=== PATIENT | male | born 1955 | race Caucasian/White ===

== ENCOUNTER → 2016-09-13 | Outpatient (CLI) | payer MEDICARE ==
--- NOTE | 2016-09-13 17:01 | US ---
EXAMINATION TYPE: US scrotum with doppler. Grayscale and color Doppler Duplex imaging performed of t erlinda scrotum. DATE OF EXAM: 09/13/2016 4:08 PM COMPARISON: NONE CLINICAL HISTORY: N50.819 Testicular Pain. Pain started on left then went to the right. No injury. No swelling EXAM MEASUREMENTS: TESTICLES: Right Testicle: 4.0 x 2.9 x 2.6 cm Left Testicle: 3.9 x 3.4 x 2.3 cm EPIDIDYMIS HEAD: Right Epididymis: 1.3 x 1.0 x 0.6 cm Left Epididymis: 1.1 x 1.1 x 0.6 cm Doppler performed to assess for testicular vascularity; good bilateral color flow and waveforms are s een. There is no evidence of testicular torsion. Presence of hydroceles: yes, bilateral Presence of varicoceles: No TECHNOLOGIST IMPRESSION: Right epididymal simple cyst seen in head = 0.5 x 0.5 x 0.5 cm IMPRESSION: 1. Right epididymal cyst
== END | disposition home or self-care (01) ==
LOC: RADUSMAIN 15:32
PROVIDERS: ATTEND Family Medicine
DX: N50.3 Cyst of epididymis (principal); N50.819 Testicular pain, unspecified
CPT/HCPCS: 76870; 93975

== ENCOUNTER → 2017-09-20 | Outpatient (CLI) | payer MEDICARE | END | disposition home or self-care (01) | LOC: LABWHC1 10:34 | PROVIDERS: ATTEND Psychiatry & Neurology Neurology | DX: G40.009 Localization-related (focal) (partial) idiopathic epilepsy and epileptic syndromes with seizures of localized onset, not intractable, without status epilepticus (principal) | CPT/HCPCS: 36415; 80156; 80177 ==

== ENCOUNTER → 2018-09-19 | Outpatient (CLI) | payer MEDICARE | END | disposition home or self-care (01) | LOC: LABWHC1 10:38 | PROVIDERS: ATTEND Psychiatry & Neurology Neurology | DX: G40.009 Localization-related (focal) (partial) idiopathic epilepsy and epileptic syndromes with seizures of localized onset, not intractable, without status epilepticus (principal) | CPT/HCPCS: 36415; 80156; 80177 ==

== ENCOUNTER → 2019-09-11 | Outpatient (CLI) | payer MEDICARE | END | disposition home or self-care (01) | LOC: LABWHC1 10:40 | PROVIDERS: ATTEND Psychiatry & Neurology Neurology | DX: G40.009 Localization-related (focal) (partial) idiopathic epilepsy and epileptic syndromes with seizures of localized onset, not intractable, without status epilepticus (principal) | CPT/HCPCS: 36415; 80156; 80177 ==

== ENCOUNTER → 2021-04-14 | Outpatient (CLI) | payer MEDICARE | END | disposition home or self-care (01) | LOC: LABWHC1 10:46 | PROVIDERS: ATTEND Psychiatry & Neurology Neurology | DX: G40.909 Epilepsy, unspecified, not intractable, without status epilepticus (principal) | CPT/HCPCS: 36415; 80156; 80177 ==

== ENCOUNTER 2022-01-20 12:10 | Inpatient (IN) | payer MEDICARE ==
[2022-01-20 13:33] LABS: HCT 40.1 % (39.0-53.0); HGB 13.9 gm/dL (13.0-17.5); MCH 32.2 pg (25.0-35.0); MCHC 34.7 g/dL (31.0-37.0); MCV 92.6 fL (80.0-100.0); Mean Platelet Volume 7.9; Platelet Count 142 k/uL (150-450); RBC 4.33 m/uL (4.30-5.90); RDW 12.9 % (11.5-15.5); WBC 7.1 k/uL (3.8-10.6)
[2022-01-20 13:44] LABS: Albumin 4.7 g/dL (3.5-5.0); Calcium 8.5 mg/dL (8.4-10.2); Potassium 3.5 mmol/L (3.5-5.1); Total Bilirubin 0.4 mg/dL (0.2-1.3); Total Protein 7.7 g/dL (6.3-8.2)
--- NOTE | 2022-01-20 13:49 | CT ---
n EXAMINATION TYPE: CT brain wo con DATE OF EXAM: 01/20/2022 COMPARISON: None HISTORY: Altered mental status, blood from Rt ear CT DLP: 1099.[address] of the brain was performed. The ventricles, basal cisterns and sulci overlying the cerebral convexities demonstrate mild enlargem ent. 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 There is no evidence for intracranial hemorrhage or sulcal effacement. There is decreased attenuation about the periventricular white matter and deep white matter of both c erebral hemispheres, compatible with chronic small vessel ischemia. Differential diagnosis does inclu de demyelination. No mass effects are seen.No midline shift. Osseous calvarium is intact. If symptoms persist consider MRI. IMPRESSION: 1. Age related atrophic and chronic small vessel ischemic change without acute intracranial process s een at this time. Colloid cyst as noted.
--- NOTE | 2022-01-20 13:50 | XR ---
EXAMINATION TYPE: XR chest 2V DATE OF EXAM: 01/20/2022 1:43 PM COMPARISON: None TECHNIQUE: XR chest 2V Frontal and lateral views of the chest. CLINICAL INDICATION:Male, 67 years old with history of cough; FINDINGS: Lungs/Pleura: No pneumothorax, pleural effusion or focal consolidation. Subtle hazy opacities noted i n the medial aspect of the right lower lung. Pulmonary vascularity: Unremarkable. Heart/mediastinum: Cardiomediastinal silhouette is unremarkable. Musculoskeletal: No acute osseous pathology. IMPRESSION: Subtle right lower opacities correlate for pneumonia.
[2022-01-20] MEDS ORDERED: SODIUM CHLORIDE 0.9% 1,000 ML IV ONE (14:03)
[2022-01-20] MEDS ORDERED: ACETAMINOPHEN TAB 325 MG TAB PO PRN (14:55)
[2022-01-20] MEDS ORDERED: NALOXONE 0.4 MG/ML 1 ML VIAL IV PRN ×2 (14:55→16:36)
[2022-01-20] MEDS ORDERED: cefTRIAXone IN SWFI 1,000 MG/10 ML SYRINGE IVP STA (14:56)
--- NOTE | 2022-01-20 15:02 | ED ---
General Adult HPI - General Chief complaint: Altered Mental Status Stated complaint: blood in ear/AMS Time Seen by Provider: 01/20/22 13:54 Source: patient, RN notes reviewed, old records reviewed Mode of arrival: wheelchair - History of Present Illness Initial comments: 67-year-old male presents for evaluation of progressive confusion over the past 36 hours. Patient is coming by son and [id number]-su-pof who indicate that he has a seizure disorder but there was no witnessed seizure activity. There was a fall at home and they have noted some bleeding around the right ear. Uncertain if the patient lost consciousness. He denies pain complaints. There's been no measured fever. No vomiting. - Related Data Allergies Allergy/AdvReac Type Severity Reaction Status Date / Time No Known Allergies Allergy Verified 01/20/22 13:10 Review of Systems ROS Statement: Those systems with pertinent positive or pertinent negative responses have been documented in the HPI. ROS Other: All systems not noted in ROS Statement are negative. Past Medical History Additional Past Medical History / Comment(s): epilepsy History of Any Multi-Drug Resistant Organisms: None Reported Past Surgical History: No Surgical Hx Reported Past Psychological History: No Psychological Hx Reported Smoking Status: Never smoker Past Alcohol Use History: None Reported Past Drug Use History: None Reported General Exam General appearance: alert, in no apparent distress Head exam: Present: atraumatic, normocephalic Eye exam: Present: normal appearance, PERRL ENT exam: Present: normal exam Neck exam: Present: normal inspection. Absent: tenderness, meningismus Respiratory exam: Present: normal lung sounds bilaterally. Absent: respiratory distress, wheezes Cardiovascular Exam: Present: regular rate, normal rhythm GI/Abdominal exam: Present: soft. Absent: distended, tenderness, guarding Extremities exam: Present: normal inspection, normal capillary refill. Absent: pedal edema Neurological exam: Present: alert, CN II-XII intact. Absent: oriented X3, motor sensory deficit Psychiatric exam: Present: flat affect Skin exam: Present: warm, dry, intact. Absent: cyanosis, diaphoretic Course Vital Signs 01/20/22 13:00 Temperature 99.1 F Pulse Rate 76 Respiratory 18 Rate Blood Pressure 132/83 O2 Sat by Pulse 95 Oximetry EKG Findings - EKG Comments: EKG Findings:: EKG: Sinus rhythm rate of 70, AR 193, QRS duration 94, QTC [address] segment changes. Medical Decision Making - Medical Decision Making 67-year-old presenting with progressive confusion and he is altered and unable to give a detailed history. He does not have any focal findings on exam no numbness or weakness. His head CT is negative for acute findings, there is a area in the left temporoparietal region that radiology believes is an old calcification, no acute hemorrhage. I did discuss case with [facility] who will admit with neurology on consult. - Lab Data Result diagrams: 01/20/22 13:24 01/20/22 13:24 Lab Results 01/20/22 01/20/22 01/20/22 Range/Units 13:24 13:24 13:24 WBC 7.1 (3.8-10.6) k/uL RBC 4.33 (4.30-5.90) m/uL Hgb 13.9 (13.0-17.5) gm/dL Hct 40.1 (39.0-53.0) % MCV 92.6 (80.0-100.0) fL MCH 32.2 (25.0-35.0) pg MCHC 34.7 (31.0-37.0) g/dL RDW 12.9 (11.5-15.5) % Plt Count 142 L (150-450) k/uL MPV 7.9 Sodium 132 L (137-145) mmol/L Potassium 3.5 (3.5-5.1) mmol/L Chloride 96 L (98-107) mmol/L Carbon Dioxide 25 (22-30) mmol/L Anion Gap 11 mmol/L BUN 25 H (9-20) mg/dL Creatinine 1.50 H (0.66-1.25) mg/dL Est GFR (CKD-EPI)AfAm 56 (>60 ml/min/1.73 sqM) Est GFR (CKD-EPI)NonAf 48 (>60 ml/min/1.73 sqM) Glucose 154 H (74-99) mg/dL Calcium 8.5 (8.4-10.2) mg/dL Total Bilirubin 0.4 (0.2-1.3) mg/dL AST 32 (17-59) U/L ALT 19 (4-49) U/L Alkaline Phosphatase 84 (38-126) U/L Troponin I <0.012 (0.000-0.034) ng/mL Total Protein 7.7 (6.3-8.2) g/dL Albumin 4.7 (3.5-5.0) g/dL Disposition Clinical Impression: Altered mental status Disposition: ADMITTED IP TO THIS HOSP Condition: Stable Is patient prescribed a controlled substance at d/c from ED?: No Referrals: Nonstaff,Physician [Primary Care Provider] - 1-2 days Time of Disposition: 15:02
[2022-01-20] MEDS ORDERED: levETIRAcetam IV 1,000 MG in SALINE 1 100ML.BAG IVPB STA (15:20)
--- NOTE | 2022-01-20 15:51 | P.CNNES ---
History of Present Illness Consult date: 01/20/22 Requesting physician: Thomas Thomson Reason for Consult: altered mental status History of Present Illness: This is a 67-year-old gentleman with medical history of epilepsy who presented to the emergency department for confusion. History obtained from the patient's son and his [id number] who are bedside. They stated patient has been having confusion for the past almost 2 days. It seems the patient called EMS yesterday since was not feeling well and they examined him and felt he was doing well and stated he did not need to be taken to hospital according to his family members. But he continued to be confused so his son brought him to our ED. The patient lives with his father (but his father is recently hospitalized for his pneumonia). It seems the patient temperature was normal when EMS checked ye sterday. Regarding his seizure medication the son, had to take list from patient wallet and it seems he is on Keppra 500mg and Tegretol 200mg but unsure how frequent. It seems he has mild headache over bilateral frontal but denies any nausea or vomiting. No focal weakness. Per son he is under a lot of stress because of family member's in the last one month. He follows-up with Dr. Andre (neurologist) for his epilepsy management. It seems patient has epilepsy throughout his life and has seizures and his spells are without motor involvement. Patient does not drink alcohol, smoke cigarettes or use any illicit drug use. Some of the work-up in our facility consisted of: Temperature is 99.1F oral. wbc: 7.1k. creatnine 1.50, sodium 132, sugar is 154. I reviewed rest of lab results. CT head is reported as age-related atrophy and chronic small vessel ischemic change without acute intracranial process seen at this time. Colloid cyst as noted. I personally reviewed the CT of the head and I agree with the report. 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 Review of Systems Review of system: The 12 point system was reviewed and apparent positive and negative per HPI. Past Medical History Additional Past Medical History / Comment(s): epilepsy History of Any Multi-Drug Resistant Organisms: None Reported Past Surgical History: No Surgical Hx Reported Past Psychological History: No Psychological Hx Reported Smoking Status: Never smoker Past Alcohol Use History: None Reported Past Drug Use History: None Reported Medications and Allergies Home Medications Medication Instructions Recorded Confirmed Type Losartan-Hctz 50-12.5 mg [Hyzaar 1 tab PO DAILY 01/20/22 01/20/22 History 50-12.5] amLODIPine [Norvasc] 5 mg PO DAILY 01/20/22 01/20/22 History carBAMazepine [TEGretol] 400 mg PO BID 01/20/22 01/20/22 History levETIRAcetam [Keppra] 1,000 mg PO DAILY 01/20/22 01/20/22 History levETIRAcetam [Keppra] 1,500 mg PO HS 01/20/22 01/20/22 History Allergies Allergy/AdvReac Type Severity Reaction Status Date / Time No Known Allergies Allergy Verified 01/20/22 15:26 Physical Examination - Vital Signs Vital Signs: Vital Signs Temp Pulse Resp BP Pulse Ox 01/20/22 13:00 99.1 F 76 18 132/83 95 Intake and Output 01/20/22 01/20/22 01/20/22 06:59 14:59 22:59 Other: Weight 81.647 kg GENERAL: The patient is lying in bed and is not in acute distress. CHEST: The heart rate is regular rate rhythm. No murmurs to auscultation. LUNG: Clear to auscultation bilaterally no wheezing noted throughout. Not labored breathing. ABDOMEN/GI: Bowel sounds present in all 4 quadrants. No tenderness to palpation throughout. NEUROLOGICAL: Higher mental function: The patient is awake, oriented to self. He stated he was at hospital. He could not tell me year or month. He is slow in responding. He correctly named his son who is at bedside but rather saying his [id number]-jk-wgz is also accompanied he stated ukjozr-kt-mpc multiple times. He is able to name simple objects. No aphasia and no neglect. Cranial nerves: The pupils are round, equal and reactive to light and accommodation. Visual krishnan are full to confrontation throughout. Extraocular movement is intact no nystagmus is noted. Facial sensation is normal to touch throughout. The facial strength is normal throughout. Hearing is normal bilaterally to hand rub. Tongue is midline and moved ierg-rc-[id number] without any difficulty. No dysarthria is noted. Shoulder shrug is normal bilaterally. Motor: The strength is 5 over 5 throughout. Normal tone and bulk. Cerebellum: Normal finger to nosebilaterally. Sensation: Sensation is normal to touch throughout. Reflexes (right/left): 2+ throughout. Plantars are mute bilaterally. Results - Laboratory Findings CBC and BMP: 01/20/22 13:24 01/20/22 13:24 Abnormal Lab Findings: Abnormal Labs 01/20/22 01/20/22 13:24 13:24 Plt Count 142 L Sodium 132 L Chloride 96 L BUN 25 H Creatinine 1.50 H Glucose 154 H Assessment and Plan Assessment: Encephalopathy of unknown etiology but suspected break-through seizure. I feel unlikely meningoencephalitis (afebrile, no leukocytosis and supple neck) History of epilepsy History of Left frontal encephalomalacia s/p cuate hole Plan: I loaded the patient with Keppra 1gm once. I attempted to called his neurologist office to find out his Keppra and Tegretol dose but no response and left message. I called our inpatient pharmacy who contacted his outpatient pharmacy and it seems patient is on Keppra 500mg 2 tab am and 3tabs qhs. Is on Tegretol 200mg 2 tab bid. Therefore, I will go up on his Keppra from 2tab qam to 3 tabs and continue same 3 tabs qhs. I will load patient with Keppra 1gm once. I will also given 1mg Ativan once. Ordered routine EEG (currently no tech) and will not be performed until this Sunday but if patient's condition improves can be done as outpatient. Q4 hour neuro checks. Placed on seizure precaution and pads. Will defer the rest of medical management to primary team. Upon discharge, patient needs to follow-up with his neurologist (Dr. Andre) as outpatient within 1-2 weeks. The plan is discussed with his son and meghvdcl-vu-wby who are at bedside. Thank you for the consultation. Mahesh Weller M.D. Neuro-Hospitalist Time with Patient: Greater than 30
[2022-01-20] MEDS ORDERED: LORazepam 2 MG/ML INJ IV STA (16:10)
--- NOTE | 2022-01-20 16:32 | P.HPIM ---
History of Present Illness H&P Date: 01/20/22 Chief Complaint: fall 67-year-old gentleman with medical history of epilepsy who presented to the emergency department for confusion. History obtained from the patient's son and his kwwsbayp-[id number] who are bedside. They stated patient has been having confusion for the past almost 2 days. There is hx of fall at home as well which patient does not remember, he currently has dried blood in front of the right ear. He is not sure if he lost consciousness. The patient lives with his father (who is currently hospitalized under our service for his pneumonia). His brother douglas as well and he is having a lot of stress from that. Per son his epilepsy spells are without motor involvement. Unsure when the last spell was. He takes keppra and tegretol for epilepsy. He complained of bilateral frontal headaches but denies any nausea or vomiting. No focal weakness or numbness, no blurred or double vision. In the ER temperature was 99.1F oral. wbc: 7.1k. creatnine 1.50, sodium 132, sugar is 154. CT head is reported as age-related atrophy and chronic small vessel ischemic change without acute intracranial process seen at this time. Review of Systems Complete review of system was performed, pertinent positives per HPI, otherwise negative Past Medical History Additional Past Medical History / Comment(s): epilepsy History of Any Multi-Drug Resistant Organisms: None Reported Past Surgical History: No Surgical Hx Reported Past Psychological History: No Psychological Hx Reported Smoking Status: Never smoker Past Alcohol Use History: None Reported Past Drug Use History: None Reported Medications and Allergies Home Medications Medication Instructions Recorded Confirmed Type Losartan-Hctz 50-12.5 mg [Hyzaar 1 tab PO DAILY 01/20/22 01/20/22 History 50-12.5] amLODIPine [Norvasc] 5 mg PO DAILY 01/20/22 01/20/22 History carBAMazepine [TEGretol] 400 mg PO BID 01/20/22 01/20/22 History levETIRAcetam [Keppra] 1,000 mg PO DAILY 01/20/22 01/20/22 History levETIRAcetam [Keppra] 1,500 mg PO HS 01/20/22 01/20/22 History Allergies Allergy/AdvReac Type Severity Reaction Status Date / Time No Known Allergies Allergy Verified 01/20/22 15:26 Physical Exam Vitals: Vital Signs Temp Pulse Resp BP Pulse Ox 01/20/22 13:00 99.1 F 76 18 132/83 95 Intake and Output 01/20/22 01/20/22 01/20/22 06:59 14:59 22:59 Other: Weight 81.647 kg Constitutional: No acute distress, conversant, pleasant Eyes:Anicteric sclerae, moist conjunctiva, no lid-lag, PERRLA, ENMT: Oropharynx clear, no erythema, exudates. Dried scab in front of the right ear Neck: Supple, FROM, no masses, or JVD, No carotid bruits, No thyromegaly Lungs: Clear to auscultation, Clear to percussion, Normal respiratory effort, no accessory muscle use Cardiovascular: Heart regular in rate and rhythm, No murmurs, gallops, or rubs, No peripheral edema Abdominal: Soft, Nontender, no guarding, rebound or rigidity, Normoactive bowel sounds, No hepatomegaly, No splenomegaly, No palpable mass Skin: Normal temperature, tone, texture, turgor, no induration, No subcutaneous nodules, No rash, lesions, No ulcers Extremities: No digital cyanosis, No clubbing, Pedal pulses intact and sym metrical, Radial pulses intact and symmetrical, No calf tenderness Psychiatric: Alert and oriented to person, place and time, appropriate affect, intact judgement Neuro: Muscles Strength 5/5 in all 4 extremities, Sensation to light touch grossly present throughout, Cranial nerves II-XII grossly intact, no focal sensory deficits Results CBC & Chem 7: 01/20/22 13:24 01/20/22 13:24 Labs: Abnormal Lab Results - Last 24 Hours (Table) 01/20/22 01/20/22 Range/Units 13:24 13:24 Plt Count 142 L (150-450) k/uL Sodium 132 L (137-145) mmol/L Chloride 96 L (98-107) mmol/L BUN 25 H (9-20) mg/dL Creatinine 1.50 H (0.66-1.25) mg/dL Glucose 154 H (74-99) mg/dL Assessment and Plan Plan: Encephalopathy of unknown etiology Suspected break-through seizure. History of epilepsy History of Left frontal encephalomalacia s/p cuate hole Patient seen by neurology He was loaded with Keppra 1gm once, then keppra and tegretol continued, with increased dose. EEG Q4 hour neuro checks. Placed on seizure precautions. HTN Stable resume meds Admit to inpatient expected length of stay more than 2 midnights.
[2022-01-20] MEDS: SODIUM CHLORIDE 0.9% 1,000 ML IV SCH (16:46)
[2022-01-20] MEDS: carBAMazepine 200 MG TAB PO SCH (16:54)
[2022-01-20] MEDS: amLODIPine 5 MG TAB PO SCH (16:57)
[2022-01-20 17:49] LABS: Amphetamine Screen,Urine Not Detected (NotDetected); Barbiturate Screen,Urine Not Detected (NotDetected); Benzodiazepines Screen,Urine Not Detected (NotDetected); Cocaine Screen,Urine Not Detected (NotDetected); Methadone Screen, Urine Not Detected (NotDetected); Opiate Screen,Urine Not Detected (NotDetected); Oxycodone Screen, Urine Not Detected (NotDetected); Phencyclidine Screen,Urine Not Detected (NotDetected); Tricyclic Antidepressant,Urine Not Detected (NotDetected); Urn Cannabinoid Scrn Not Detected (NotDetected)
[2022-01-20 17:50] LABS: Amorphous Sediment,Urine Rare /hpf; Appearance,Urine Clear (Clear); Bacteria,Urine Rare /hpf; Bilirubin,Urine Negative (Negative); Blood,Urine Small (Negative); Color,Urine Light Yellow; Glucose,Urine (UA) Negative (Negative); Ketones,Urine Negative (Negative); Leukocyte Esterase,Urine Negative (Negative); Mucus,Urine Occasional /hpf; Nitrite,Urine Negative (Negative); Protein,Urine Trace (Negative); RBC,Urine 2 /hpf (0-5); Specific Gravity,Urine 1.011 (1.001-1.035); Urobilinogen,Urine <2.0 mg/dL (<2.0); WBC,Urine <1 /hpf (0-5)
[2022-01-21] MEDS: carBAMazepine 200 MG TAB PO SCH ×3 (00:46→20:45)
[2022-01-21] MEDS: levETIRAcetam 500 MG TAB PO SCH ×3 (00:46→20:45)
[2022-01-21] MEDS: amLODIPine 5 MG TAB PO SCH (08:51)
[2022-01-21] MEDS: SODIUM CHLORIDE 0.9% 1,000 ML IV SCH ×2 (08:53→17:28)
[2022-01-21 09:06] LABS: African American GFR (CKD) 66.4 (60.0-200.0); Albumin 3.9 g/dL (3.8-4.9); Albumin/Globulin Ratio 1.56 (1.60-3.17); Anion Gap 14.8 mmol/L (10.00-18.00); BUN/Creat Ratio 14.62 Ratio (12.00-20.00); Calcium 8.1 mg/dL (8.7-10.3); Carbon Dioxide 23.2 mmol/L (20.0-27.5); Globulin 2.5 g/dL (1.6-3.3); Magnesium 2.1 mg/dL (1.5-2.4); Non-African American GFR(CKD) 57.3 (60.0-200.0); Phosphorus 3.2 mg/dL (2.4-5.1); Potassium 3.2 mmol/L (3.5-5.5); Total Bilirubin 0.3 mg/dL (0.30-1.20); Total Protein 6.4 g/dL (6.2-8.2)
[2022-01-21] MEDS ORDERED: POTASSIUM CHLORIDE ER 20 MEQ TAB.ER PO STA (09:40)
[2022-01-21] MEDS ORDERED: POTASSIUM CHLORIDE 10 MEQ in WATER FOR INJECTION 1 100ML.BAG IVPB STA (09:40)
--- NOTE | 2022-01-21 09:49 | P.PN ---
Subjective Progress Note Date: 01/21/22 Principal diagnosis: change in mental status I noticed today that the left side of his face is weaker than the right. He is not aware of any of that in the past. He doesn't recall passing out at home but states that he felt hot in the forehead area and had a frontal headache, also felt very dizzy and had imbalance.. Again he denied blurred or double vision. No more dizziness. His mentation seems to be back to baseline this am. Objective - Vital Signs Vital signs: Vital Signs Temp 99.8 F H 01/21/22 07:38 Pulse 63 01/21/22 07:38 Resp 18 01/21/22 07:38 BP 128/66 01/21/22 07:38 Pulse Ox 96 01/21/22 07:38 FiO2 Intake & Output 01/20/22 01/21/22 01/21/22 18:59 06:59 18:59 Weight 81.647 kg 81.647 kg Other: # Voids 4 - Exam Constitutional: No acute distress, conversant, pleasant Eyes:Anicteric sclerae, moist conjunctiva, no lid-lag, PERRLA, ENMT: Oropharynx clear, no erythema, exudates Neck: Supple, FROM, no masses, or JVD, No carotid bruits, No thyromegaly Lungs: Clear to auscultation, Clear to percussion, Normal respiratory effort, no accessory muscle use Cardiovascular: Heart regular in rate and rhythm, No murmurs, gallops, or rubs, No peripheral edema Abdominal: Soft, Nontender, no guarding, rebound or rigidity, Normoactive bowel sounds, No hepatomegaly, No splenomegaly, No palpable mass Skin: Normal temperature, tone, texture, turgor, no induration, No subcutaneous nodules, No rash, lesions, No ulcers Extremities: No digital cyanosis, No clubbing, Pedal pulses intact and symmetrical, Radial pulses intact and symmetrical, No calf tenderness Psychiatric: Alert and oriented to person, place and time, appropriate affect, intact judgement Neuro: Muscles Strength 5/5 in all 4 extremities, Sensation to light touch grossly present throughout, 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, rest of instrument person ok, no focal sensory deficits - Labs CBC & Chem 7: 01/20/22 13:24 01/21/22 04:52 Labs: Abnormal Lab Results - Last 24 Hours (Table) 01/20/22 01/20/22 01/20/22 Range/Units 13:24 13:24 17:11 Plt Count 142 L (150-450) k/uL Sodium 132 L (137-145) mmol/L Potassium (3.5-5.5) mmol/L Chloride 96 L (98-107) mmol/L BUN 25 H (9-20) mg/dL Creatinine 1.50 H (0.66-1.25) mg/dL Est GFR (CKD-EPI)NonAf (60.0-200.0) Glucose 154 H (74-99) mg/dL Calcium (8.7-10.3) mg/dL Albumin/Globulin Ratio (1.60-3.17) g/dL Urine Protein Trace H (Negative) Urine Blood Small H (Negative) Amorphous Sediment Rare H (None) /hpf Urine Bacteria Rare H (None) /hpf Urine Mucus Occasional H (None) /hpf 01/21/22 Range/Units 04:52 Plt Count (150-450) k/uL Sodium 133 L (137-145) mmol/L Potassium 3.2 L (3.5-5.5) mmol/L Chloride 95 L (98-107) mmol/L BUN (9-20) mg/dL Creatinine (0.66-1.25) mg/dL Est GFR (CKD-EPI)NonAf 57.3 L (60.0-200.0) Glucose (74-99) mg/dL Calcium 8.1 L (8.7-10.3) mg/dL Albumin/Globulin Ratio 1.56 L (1.60-3.17) g/dL Urine Protein (Negative) Urine Blood (Negative) Amorphous Sediment (None) /hpf Urine Bacteria (None) /hpf Urine Mucus (None) /hpf Assessment and Plan Plan: Encephalopathy of unknown etiology Suspected break-through seizure. History of epilepsy History of Left frontal encephalomalacia s/p cuate hole Patient seen by neurology He was loaded with Keppra 1gm once, then keppra and tegretol continued, with increased dose. EEG Q4 hour neuro checks. Placed on seizure precautions. Left facial droop D/w neuro MRI brain R/o CVA vs. oropeza's palsy HTN Stable resume meds
[2022-01-21 10:12] LABS: Basophils # (A) 0.01 X 10*3/uL (0.00-0.10); Basophils % (A) 0.1 %; Eosinophils # (A) 0 X 10*3/uL (0.04-0.35); Eosinophils % (A) 0 %; HCT 36.7 % (39.6-50.0); HGB 12.4 g/dL (13.0-17.0); Immature Grans, Automated 0.2 %; Lymphocytes % (A) 14.5 %; MCH 30.3 pg (27.0-32.0); MCHC 33.8 g/dL (32.0-37.0); MCV 89.7 fL (80.0-97.0); Monocytes # (A) 0.82 X 10*3/uL (0.20-1.00); Monocytes % (A) 9.9 %; NRBC Per 100 WBC 0 /100 WBCS (0.0-0.0); Neutrophils # (A) 6.23 X 10*3/uL (1.80-7.70); Neutrophils % (A) 75.3 %; Platelet Count 99 X 10*3/uL (140-440); RBC 4.09 X 10*6/uL (4.40-5.60); RDW 12.2 % (11.5-14.5); WBC 8.28 X 10*3/uL (4.50-10.00)
--- NOTE | 2022-01-21 12:21 | P.PN ---
Subjective Progress Note Date: 01/21/22 The patient is seen at bedside and feels doing better. Per Primary team he feels he has left facial weakness today and concern for stroke. Patient denies any focal weakness. Objective - Vital Signs Vital signs: Vital Signs Temp 99.8 F H 01/21/22 07:38 Pulse 63 01/21/22 07:38 Resp 18 01/21/22 07:38 BP 128/66 01/21/22 07:38 Pulse Ox 96 01/21/22 07:38 FiO2 Intake & Output 01/20/22 01/21/22 01/21/22 18:59 06:59 18:59 Weight 81.647 kg 81.647 kg Other: # Voids 4 - Exam GENERAL: The patient is lying in bed and is not in acute distress. NEUROLOGICAL: Higher mental function: The patient is awake, oriented to self, place and time. Following simple commands. Sometimes I had to make him slow down so was speaking in fast past. Minimally he was repeated himself. No aphasia and no neglect. Cranial nerves: The pupils are round, equal and reactive to light . Visual krishnan are full to confrontation throughout. Extraocular movement is intact no nystagmus is noted. Facial sensation is normal to touch throughout. The facial strength is left nasolabial flattening (patient felt new). No dysarthria is noted. Shoulder shrug is normal bilaterally. Motor: The strength is 5 over 5 throughout. Normal tone and bulk. Cerebellum: Normal finger to nosebilaterally. Sensation: Sensation is normal to touch throughout. Reflexes (right/left): 2+ throughout. Plantars are mute bilaterally. Some of the work-up in our facility consisted of: Temperature is 99.1F oral. wbc: 7.1k. creatnine 1.50, sodium 132, sugar is 154. I reviewed rest of lab results. CT head is reported as age-related atrophy and chronic small vessel ischemic jermain nge without acute intracranial process seen at this time. Colloid cyst as noted. I personally reviewed the CT of the head and I agree with the report. 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 - Labs CBC & Chem 7: 01/21/22 04:52 01/21/22 04:52 Labs: Abnormal Lab Results - Last 24 Hours (Table) 01/20/22 01/20/22 01/20/22 Range/Units 13:24 13:24 17:11 Plt Count 142 L (150-450) k/uL Sodium 132 L (137-145) mmol/L Potassium (3.5-5.5) mmol/L Chloride 96 L (98-107) mmol/L BUN 25 H (9-20) mg/dL Creatinine 1.50 H (0.66-1.25) mg/dL Est GFR (CKD-EPI)NonAf (60.0-200.0) Glucose 154 H (74-99) mg/dL Calcium (8.7-10.3) mg/dL Albumin/Globulin Ratio (1.60-3.17) g/dL Urine Protein Trace H (Negative) Urine Blood Small H (Negative) Amorphous Sediment Rare H (None) /hpf Urine Bacteria Rare H (None) /hpf Urine Mucus Occasional H (None) /hpf 01/21/22 Range/Units 04:52 Plt Count (150-450) k/uL Sodium 133 L (137-145) mmol/L Potassium 3.2 L (3.5-5.5) mmol/L Chloride 95 L (98-107) mmol/L BUN (9-20) mg/dL Creatinine (0.66-1.25) mg/dL Est GFR (CKD-EPI)NonAf 57.3 L (60.0-200.0) Glucose (74-99) mg/dL Calcium 8.1 L (8.7-10.3) mg/dL Albumin/Globulin Ratio 1.56 L (1.60-3.17) g/dL Urine Protein (Negative) Urine Blood (Negative) Amorphous Sediment (None) /hpf Urine Bacteria (None) /hpf Urine Mucus (None) /hpf Assessment and Plan Assessment: Encephalopathy of unknown etiology but suspected break-through seizure. Rule out stroke since has mild left facial droop. History of epilepsy History of Left frontal encephalomalacia s/p cuate hole Plan: Increased his home Keppra from 2tab qam to 3 tabs and continue same 3 tabs qhs. Continue his home dose of Tegretol 200mg bid. MRI Brain is ordered by primary team to rule out stroke which I agree. If does have stroke will get rest of stroke work-up. But in mean time started him on ASA 81mg and Lipitor 20mg qhs for secondary stroke prophylaxis. Ordered routine EEG (currently no tech) and will not be performed until this Sunday. Q4 hour neuro checks. Placed on seizure precaution and pads. Will defer the rest of medical management to primary team. Upon discharge, patient needs to follow-up with his neurologist (Dr. Andre) as outpatient within 1-2 weeks. The plan is discussed with patient and primary attending. Mahesh Weller M.D. Neuro-Hospitalist Time with Patient: Less than 30
--- NOTE | 2022-01-21 13:44 | MR ---
EXAMINATION TYPE: MR brain wo con DATE OF EXAM: 01/21/2022 1:40 PM COMPARISON: CT from 01/20/2022 HISTORY: Facial weakness, AMS, hx epilepsy. FINDINGS: The ventricles, basal cisterns and sulci overlying the cerebral convexities are mildly enlarged. There is evidence of mild periventricular white matter ischemic demyelination. Colloid cyst measuring 1.1 cm x 8 mm septum pellucidum without hydrocephalus. Remote deep white matter insults are also noted. No acute edema is seen on diffusion weighted imaging. There is no evidence for midline shift or mass effect. Acute intracranial hemorrhage or extra-axial collection is not evident. The paranasal sinuses and mastoid air cells are well-aerated. IMPRESSION: Age-related atrophic and chronic small vessel ischemic change. No acute intracranial process at this time.
[2022-01-21] MEDS: ASPIRIN 81 MG PO SCH (14:00)
[2022-01-21 20:20] LABS: Glucose,Whole Blood 137 mg/dL (70-110)
[2022-01-21] MEDS: ATORVASTATIN 20 MG TAB PO SCH (20:45)
[2022-01-22] MEDS: SODIUM CHLORIDE 0.9% 1,000 ML IV SCH ×2 (08:17→19:52)
[2022-01-22] MEDS: levETIRAcetam 500 MG TAB PO SCH ×2 (08:18→21:27)
[2022-01-22] MEDS: carBAMazepine 200 MG TAB PO SCH ×2 (08:18→21:27)
[2022-01-22] MEDS: amLODIPine 5 MG TAB PO SCH (08:18)
[2022-01-22] MEDS: ASPIRIN 81 MG PO SCH (08:18)
--- NOTE | 2022-01-22 09:28 | CT ---
EXAMINATION TYPE: CT brain wo/w con DATE OF EXAM: 01/22/2022 COMPARISON: 01/20/2022 HISTORY: Seizure. 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 CT DLP: 2252.4mGycm CONTRAST: CT scan of the head is performed without and with IV Contrast, patient injected with 80ml mL of Isovu e 300. Unenhanced followed by contrast enhanced CT of the brain is submitted for evaluation. The ventricles are midline. Age-related atrophic changes seen. Remote insult left frontal lobe where there is evide nce of prior craniotomy defect. Stable colloid cyst. There is no evidence for intracranial hemorrhage or extra-axial collection. No mass effects are identified. Contrast is administered and no enhanci ng lesions are detected. No pathologic enhancement is identified. If symptoms persist consider MRI. IMPRESSION: 1. No enhancing mass lesion is seen. 2. Colloid cyst is stable. 3. Remote insult left frontal lobe.
[2022-01-22 09:53] LABS: African American GFR (CKD) 81.2 (60.0-200.0); Anion Gap 11.7 mmol/L (10.00-18.00); BUN/Creat Ratio 12.09 Ratio (12.00-20.00); Blood Urea Nitrogen 13.3 mg/dL (9.0-27.0); Calcium 8.1 mg/dL (8.7-10.3); Carbon Dioxide 20.3 mmol/L (20.0-27.5); Non-African American GFR(CKD) 70.1 (60.0-200.0); Potassium 3.5 mmol/L (3.5-5.5)
[2022-01-22 10:15] LABS: Basophils # (A) 0.01 X 10*3/uL (0.00-0.10); Basophils % (A) 0.2 %; Eosinophils # (A) 0.01 X 10*3/uL (0.04-0.35); Eosinophils % (A) 0.2 %; HCT 37.1 % (39.6-50.0); HGB 12.5 g/dL (13.0-17.0); Immature Grans, Automated 0.4 %; Lymphocytes % (A) 28.4 %; MCH 30.3 pg (27.0-32.0); MCHC 33.7 g/dL (32.0-37.0); Mean Platelet Volume 10.9 fL (9.5-12.2); Monocytes # (A) 0.37 X 10*3/uL (0.20-1.00); Monocytes % (A) 7.5 %; NRBC Per 100 WBC 0 /100 WBCS (0.0-0.0); Neutrophils # (A) 3.12 X 10*3/uL (1.80-7.70); Neutrophils % (A) 63.3 %; Platelet Count 99 X 10*3/uL (140-440); RBC 4.12 X 10*6/uL (4.40-5.60); RDW 12.6 % (11.5-14.5); WBC 4.93 X 10*3/uL (4.50-10.00)
--- NOTE | 2022-01-22 11:42 | P.PN ---
Subjective Progress Note Date: 01/22/22 The patient is seen at bedside and he stated he is doing better but at times he would have difficulty getting his words out or stutters. No further seizures. Objective - Vital Signs Vital signs: Vital Signs Temp 98.1 F 01/22/22 07:54 Pulse 52 L 01/22/22 07:54 Resp 18 01/22/22 07:54 BP 113/64 01/22/22 07:54 Pulse Ox 99 01/22/22 07:54 FiO2 Intake & Output 01/21/22 01/22/22 01/22/22 18:59 06:59 18:59 Intake Total 1080 Output Total 300 1200 Balance 780 -1200 Intake: Oral 1080 Output: Urine 300 1200 Other: Voiding Method External Catheter External Catheter External Catheter # Voids 3 - Exam GENERAL: The patient is lying in bed and is not in acute distress. NEUROLOGICAL: Higher mental function: The patient is awake, oriented to self, place and time. Following simple commands. Sometimes I had to make him slow down so was speaking in fast past. Minimally he was repeated himself. No aphasia and no neglect. Cranial nerves: The pupils are round, equal and reactive to light . Visual krishnan are full to confrontation throughout. Extraocular movement is intact no nystagmus is noted. Facial sensation is normal to touch throughout. The facial strength is left nasolabial flattening (patient felt new). No dysarthria is noted. Shoulder shrug is normal bilaterally. Motor: The strength is 5 over 5 throughout. Normal tone and bulk. Cerebellum: Normal finger to nosebilaterally. Sensation: Sensation is normal to touch throughout. Reflexes (right/left): 2+ throughout. Plantars are mute bilaterally. Some of the work-up in our facility consisted of: Temperature is 99.1F oral. wbc: 7.1k. creatnine 1.50, sodium 132, sugar is 154. I reviewed rest of lab results. CT head is reported as age-related atrophy and chronic small vessel ischemic change without acute intracranial process seen at this time. Colloid cyst as noted. I personally reviewed the CT of the head and feel the patient had an old left frontal encephalomalacia with skull defect is seems that he had a cuate hole. I also feel the patient has hyper-intense signal over the left temporal region. MRI of the brain w/o is reported as age-related atrophic and chronic small vessel ischemic change. No acute intracranial processes at this time. I personally reviewed the MRI and the patient has on the FLAIR hyperintensity over left frontal which is old but also the patient has hypodensity is seems the collection over the left temporal region. On DWI there is a hyperintensity around border of the left temporal region. - Labs CBC & Chem 7: 01/22/22 05:40 01/22/22 05:40 Labs: Abnormal Lab Results - Last 24 Hours (Table) 01/21/22 01/22/22 01/22/22 Range/Units 20:19 05:40 05:40 RBC 4.12 L (4.40-5.60) X 10*6/uL Hgb 12.5 L (13.0-17.0) g/dL Hct 37.1 L (39.6-50.0) % Plt Count 99 L (140-440) X 10*3/uL Plt Count Comment DECREASED A Eosinophils # 0.01 L (0.04-0.35) X 10*3/uL Glucose 121 H (70-110) mg/dL POC Glucose (mg/dL) 137 H (70-110) mg/dL Calcium 8.1 L (8.7-10.3) mg/dL Assessment and Plan Assessment: Encephalopathy of unknown etiology but suspected break-through seizure. Has mild left facial droop. On CT head has hyperintensity over the left temporal region and on MRI has hyperintensity on border of left temporal while hy podensity on FLAIR: Unknown, possible bleed vs mass vs calcification. History of epilepsy History of Left frontal encephalomalacia s/p cuate hole Plan: On CT head has hyperintensity over the left temporal region and on MRI has hyperintensity on border of left temporal while hypodensity on FLAIR: Unknown, possible bleed vs mass vs calcification. Therefore ordered CT head w/ and w/o and on my remarks notified left temporal: It is reported as no enhancing mass lesion is seen. Cholelithiasis is stable. Remote consult left frontal lobe. I personally reviewed it and I felt the patient had hyperintesnity on CT with some hypodenisty around it concerning for mass vs bleed. Therefore ordered MRI Brain w/ STAT. PLEASE REVIEW IMAGES WITH READING RADIOLO GIST TOMORROW. Increased his home Keppra from 2tab qam to 3 tabs and continue same 3 tabs qhs during this hospital visit. Continue his home dose of Tegretol 200mg bid. MRI Brain is ordered by primary team to rule out stroke which I agree. If does have stroke will get rest of stroke work-up. But in mean time started him on ASA 81mg and Lipitor 20mg qhs for secondary stroke prophylaxis. Ordered routine EEG (currently no tech) and will not be performed until this Sunday. Q4 hour neuro checks. Placed on seizure precaution and pads. Will defer the rest of medical management to primary team. Upon discharge, patient needs to follow-up with his neurologist (Dr. Andre) as outpatient within 1-2 weeks. The plan is discussed with patient, his nurse and primary attending in length. Dr. Blancas will start neurology service tomorrow AM. Mahesh Weller M.D. Neuro-Hospitalist Time with Patient: Less than 30
--- NOTE | 2022-01-22 14:51 | P.PN ---
Subjective Progress Note Date: 01/22/22 Principal diagnosis: change in mental status Patient is feeling ok, no new complaints. No new weakness or numbness, no seizures. Objective - Vital Signs Vital signs: Vital Signs Temp 98.1 F 01/22/22 07:54 Pulse 52 L 01/22/22 07:54 Resp 18 01/22/22 07:54 BP 113/64 01/22/22 07:54 Pulse Ox 99 01/22/22 07:54 FiO2 Intake & Output 01/21/22 01/22/22 01/22/22 18:59 06:59 18:59 Intake Total 1080 Output Total 300 1200 Balance 780 -1200 Intake: Oral 1080 Output: Urine 300 1200 Other: Voiding Method External Catheter External Catheter External Catheter # Voids 3 - Exam Constitutional: No acute distress, conversant, pleasant Eyes:Anicteric sclerae, moist conjunctiva, no lid-lag, PERRLA, ENMT: Oropharynx clear, no erythema, exudates Neck: Supple, FROM, no masses, or JVD, No carotid bruits, No thyromegaly Lungs: Clear to auscultation, Clear to percussion, Normal respiratory effort, no accessory muscle use Cardiovascular: Heart regular in rate and rhythm, No murmurs, gallops, or rubs, No peripheral edema Abdominal: Soft, Nontender, no guarding, rebound or rigidity, Normoactive bowel sounds, No hepatomegaly, No splenomegaly, No palpable mass Skin: Normal temperature, tone, texture, turgor, no induration, No subcutaneous nodules, No rash, lesions, No ulcers Extremities: No digital cyanosis, No clubbing, Pedal pulses intact and symmetrical, Radial pulses intact and symmetrical, No calf tenderness Psychiatric: Alert and oriented to person, place and time, appropriate affect, intact judgement Neuro: Muscles Strength 5/5 in all 4 extremities, Sensation to light touch grossly present throughout, 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, 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 History of epilepsy History of Left frontal encephalomalacia s/p cuate hole Patient seen by neurology He was loaded with Keppra 1gm once, then keppra and tegretol continued, with increased dose. EEG Q4 hour neuro checks. Placed on seizure precautions. Left facial droop D/w neuro MRI brain showing no stroke ?[place] palsy Left temporal hyperintensity on MRI Per neuro, will need MRI brain with contrast, will bed done tomorrow. HTN Stable resume meds Anticipated dsicharge: tomorrow after EEG and MRI brain, likely home
[2022-01-22] MEDS: ATORVASTATIN 20 MG TAB PO SCH (21:27)
[2022-01-23] MEDS: ASPIRIN 81 MG PO SCH (09:35)
[2022-01-23] MEDS: levETIRAcetam 500 MG TAB PO SCH ×2 (09:35→20:26)
[2022-01-23] MEDS: amLODIPine 5 MG TAB PO SCH (09:35)
[2022-01-23] MEDS: carBAMazepine 200 MG TAB PO SCH ×2 (09:35→20:26)
[2022-01-23] MEDS: SODIUM CHLORIDE 0.9% 1,000 ML IV SCH (09:36)
--- NOTE | 2022-01-23 14:51 | EEG ---
ELECTROENCEPHALOGRAM REPORT DATE OF SERVICE: 01/23/2022 PREAMBLE: This 67-year-old male with altered mental status. This EEG is performed to evaluate for any epileptiform activity. EEG FINDING: This is a 21 channel digital EEG recorded with video competent, utilizing 10/20 international system with referential and bipolar montages. Background consists of well developed, well regulated moderate voltage activity in 8-9 hertz alpha. Background is posterior dominant and reactive to eye opening and closing. Photic stimulation was not performed. Mild drowsiness was seen with appearance of bilaterally symmetric theta frequency rhythm. Deeper stages of sleep were not seen. No focal or generalized epileptiform activity was seen. IMPRESSION: This is a normal awake and drowsy EEG. No focal, lateralized or epileptiform activity was seen. MMODL / IJN: [id number] /
--- NOTE | 2022-01-23 17:06 | P.PN ---
Subjective Progress Note Date: 01/23/22 Principal diagnosis: change in mental status No seizures noted since admission. No fevers or chills. No pain, no sob. Objective - Vital Signs Vital signs: Vital Signs Temp 98.2 F 01/23/22 13:53 Pulse 56 L 01/23/22 13:53 Resp 18 01/23/22 13:53 BP 108/68 01/23/22 13:53 Pulse Ox 98 01/23/22 13:53 FiO2 Intake & Output 01/22/22 01/23/22 01/23/22 18:59 06:59 18:59 Output Total 600 500 Balance -600 -500 Output: Urine 600 500 Other: Voiding Method External Catheter Toilet # Voids 1 1 # Bowel Movements 1 2 - Exam Constitutional: No acute distress, conversant, pleasant Eyes:Anicteric sclerae, moist conjunctiva, no lid-lag, PERRLA, ENMT: Oropharynx clear, no erythema, exudates Neck: Supple, FROM, no masses, or JVD, No carotid bruits, No thyromegaly Lungs: Clear to auscultation, Clear to percussion, Normal respiratory effort, no accessory muscle use Cardiovascular: Heart regular in rate and rhythm, No murmurs, gallops, or rubs, No peripheral edema Abdominal: Soft, Nontender, no guarding, rebound or rigidity, Normoactive bowel sounds, No hepatomegaly, No splenomegaly, No palpable mass Skin: Normal temperature, tone, texture, turgor, no induration, No subcutaneous nodules, No rash, lesions, No ulcers Extremities: No digital cyanosis, No clubbing, Pedal pulses intact and symmetrical, Radial pulses intact and symmetrical, No calf tenderness Psychiatric: Alert and oriented to person, place and time, appropriate affect, intact judgement Neuro: Muscles Strength 5/5 in all 4 extremities, Sensation to light touch grossly present throughout, 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 History of epilepsy History of Left frontal encephalomalacia s/p cuate hole Patient seen by neurology He was loaded with Keppra 1gm once, then keppra and tegretol continued, with increased dose. EEG showed no epileptiform discharges Q4 hour neuro checks. Placed on seizure precautions. Left facial droop D/w neuro MRI brain showing no stroke ?[place] palsy Left temporal hyperintensity on MRI Per neuro, will need MRI brain with contrast, done, awaiting report. HTN Stable resume meds Anticipated dsicharge: tomorrow after EEG and MRI brain, likely home
--- NOTE | 2022-01-23 17:49 | MR ---
EXAMINATION TYPE: MR brain w con DATE OF EXAM: 01/23/2022 COMPARISON: HISTORY: Left temporal mass, abnormal MRI. CONTRAST: Standard multiplanar, multisequence MRI departmental protocol images were obtained without contrast a nd with 8 mL intravenous Gadavist gadolinium contrast. T1-weighted postcontrast images of the brain were obtained. There is a 3 cm wedge-shaped area of increased signal on the FLAIR images on the recent exam of 2021 in the left posterior frontal lobe. This has increased signal on T2 images. The exam today postcontrast shows no pathologic enhancement in this area. There is normal enhancement of the venous sinuses. No pathologic intracranial enhancement identified. There is mixed signal in t he anterior third ventricle consistent with colloid cyst also demonstrated by the CT scan of 2. 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 No evidence of intracra nial mass.
[2022-01-23] MEDS: ATORVASTATIN 20 MG TAB PO SCH (20:26)
[2022-01-23] MEDS ORDERED: carBAMazepine 200 MG TAB PO STA (22:44)
--- NOTE | 2022-01-23 22:46 | P.PN ---
Subjective Progress Note Date: 01/23/22 Patient was seen for a follow-up. Patient initially seen by Dr. Mahesh Weller. Please refer to his note for details. In summary, patient is a 67-year-old male with history of epilepsy since mid s, who came because of seizure. Patient currently takes Tegretol 400 mg twice a day, Keppra 1000 mg in the morning and [address] Weller has increased the dose of Keppra to 1500 mg twice a day. Patient is to follow up with Dr. Rasheed, who has retired. He needs to establish with a new neurologist. Patient denies any history of strokes or TIA. Patient tells me that he has been taking aspirin 81 mg for long time, almost 10 years. He does not miss the doses of his seizure medication. He has never smoked. Objective - Vital Signs Vital signs: Vital Signs Temp 98.2 F 01/23/22 13:53 Pulse 56 L 01/23/22 13:53 Resp 18 01/23/22 13:53 BP 108/68 01/23/22 13:53 Pulse Ox 98 01/23/22 13:53 FiO2 Intake & Output 01/23/22 01/23/22 01/24/22 06:59 18:59 06:59 Output Total 500 Balance -500 Output: Urine 500 Other: Voiding Method Toilet # Voids 1 # Bowel Movements 2 - Exam Patient's mental status, speech and language functions are normal. Cranial nerves are normal. Patient has slight flattening of the left nasolabial fold, which appears his feature. Muscle strength is normal in arms and legs. No ataxia. - Labs CBC & Chem 7: 01/22/22 05:40 01/22/22 05:40 Assessment and Plan Assessment: * Encephalopathy of unknown etiology but suspected break-through seizure. Has mild left facial droop. On CT head has hyperintensity over the left temporal region and on MRI has hyperintensity on border of left temporal while hypodensity on FLAIR: Unknown, possible bleed vs mass vs calcification. * History of epilepsy since s * History of Left frontal encephalomalacia s/p cuate hole Plan: * MRI of the brain with and without contrast revealed old area of encephalomalacia involving the left frontal lobe. No mass lesion, no acute stroke. Patient denies any clinical history of CVA. * We will check carotid Doppler in the morning rule out stenosis. * Continue aspirin [address] Weller started patient on Lipitor 20 mg daily. We will check fasting lipid panel. * EEG was normal. No epileptiform activity seen. * Increased his home Keppra from 2tab qam to 3 tabs and continue same 3 tabs qhs during this hospital visit. Continue his home dose of Tegretol 400mg bid. Tegretol level is therapeutic 7.9(4-12) * Neurologically clear for discharge in morning, if carotid Doppler comes back negative. * Recommend patient to follow up with a new neurologist, as his neurologist Dr. Rasheed has retired.
[2022-01-24] MEDS: SODIUM CHLORIDE 0.9% 1,000 ML IV SCH ×2 (00:13→09:05)
[2022-01-24] MEDS ORDERED: carBAMazepine 200 MG TAB PO SCH (09:00)
[2022-01-24] MEDS: ASPIRIN 81 MG PO SCH (09:08)
[2022-01-24] MEDS: amLODIPine 5 MG TAB PO SCH (09:08)
[2022-01-24] MEDS: levETIRAcetam 500 MG TAB PO SCH (09:09)
[2022-01-24 09:30] LABS: Chol/HDL Ratio 3.21 Ratio; VLDL Calculation 15.12 mg/dL (5.00-40.00)
[2022-01-24 10:48] VITALS: TEMP 98.5
--- NOTE | 2022-01-24 14:21 | US ---
EXAMINATION TYPE: US carotid duplex BILAT DATE OF EXAM: 01/24/2022 COMPARISON: NONE CLINICAL HISTORY: 67-year-old male Old CVA r/o stenosis. Confusion, altered mental status Technique: Carotid duplex ultrasound examination. Indirect Doppler criteria was utilized. FINDINGS: EXAM MEASUREMENTS: RIGHT: Peak Systolic Velocity (PSV) cm/sec ----- Right CCA: 77.9 ----- Right ICA: 74.6 ----- Right ECA: 76.8 ICA/CCA ratio: 1.0 RIGHT: End Diastole cm/sec ----- Right CCA: 16.4 ----- Right ICA: 23.0 ----- Right ECA: 10.9 LEFT: Peak Systolic Velocity (PSV) cm/sec ----- Left CCA: 97.7 ----- Left ICA: 85.8 ----- Left ECA: 75.2 ICA/CCA ratio: 0.9 LEFT: End Diastole cm/sec ----- Left CCA: 29.0 ----- Left ICA: 36.9 ----- Left ECA: 10.4 VERTEBRALS (direction of flow): Right Vertebral: Antegrade Left Vertebral: Antegrade Rhythm: Normal Machine Lacer notes: Mild plaque bilateral bifurcations. No evidence of increased velocities IMPRESSION: No hemodynamically significant internal carotid artery stenosis on either side. Criteria for Assigning % of Stenosis / Diameter reduction (Estimation based on the indirect measurements of the internal carotid artery velocities (ICA PSV). 1. Normal (no stenosis)=ICA PSV < 125 cm/s: ratio < 2.0: ICA EDV<40 cm/s. 2. Less than 50% stenosis=ICA PSV < 125 cm/s: ratio < 2.0: ICA EDV<40 cm/s. 3. 50 to 69% stenosis=ICA PSV of 125 to 230 cm/s: ration 2.0 ? 4.0: ICA EDV 40-100 cm/s. 4. Greater than 70% stenosis to near occlusion= ICA PSV > 230 cm/s: ratio > 4.0: ICA EDV > 100 cm/s. 5. Near occlusion= ICA PSV velocities may be low or undetectable: variable ratio and ICA EDV. 6. Total occlusion=unable to detect flow.
--- NOTE | 2022-01-24 15:03 | P.DS ---
Providers Date of admission: 01/20/22 16:36 Expected date of discharge: 01/24/22 Attending physician: Mariluz Tucker DO Consults: 01/20/22 14:55 Consult Physician Routine Consulting Provider: Mahesh Weller Consult Reason/Comments: AMS Do you want consulting provider notified?: Yes Primary care physician: Physician Nonstaff Hospital Course: Discharge Diagnosis: [] Hospital Course: Patient is a 67-year-old gentleman with a past medical history of epilepsy presented to the ED with confusion. Said that the most likely etiology of his confusion was a seizure. Patient's routine EEG was normal. Patient was seen by neurology and his Keppra dose was increased to 1500 twice a day. Patient on exam also had a mild left facial droop. He had stroke workup done. MRI showed old area of encephalomalacia but no acute stroke was seen. Carotid Dopplers were negative for significant stenosis. Patient was deemed stable for discharge by neurology. Patient instructed to follow-up with a new neurologist since his previous neurologist has retired. Of note patient's blood pressure was on the low side so I stopped his lisinopril-hydrochlorothiazide. Patient seen and examined at bedside.[] Vital signs reviewed and stable. General: [non toxic], [no distress], [appears at stated age] Derm: [warm], [dry] Head: [atraumatic], [normocephalic], [symmetric] Eyes: [EOMI], [no lid lag], [anicteric sclera] Mouth: [no lip lesion], [mucus membranes moist] Cardiovascular: [S1S2 reg], [no murmur], [positive posterior tibial pulse bilateral], Lungs: [CTA bilateral], [no rhonchi, no rales] , [no accessory muscle use] Abdominal: [soft], [ nontender to palpation], [no guarding], [no appreciable organomegaly] Ext: [no gross muscle atrophy], [no edema], [no contractures] Neuro: [Mild left facial droop], [no focal neuro deficits] Psych: [Alert], [oriented], [appropriate affect] A total of [33] minutes of time were spent preparing this complex discharge summary . Patient Condition at Discharge: Stable Plan - Discharge Summary Discharge Rx Participant: No New Discharge Prescriptions: New Aspirin 81 mg PO DAILY #30 tab levETIRAcetam [Keppra] 1,500 mg PO Q12HR 30 Days #180 tab Atorvastatin [Lipitor] 20 mg PO HS 30 Days #30 tab Continue carBAMazepine [TEGretol] 400 mg PO BID amLODIPine [Norvasc] 5 mg PO DAILY Discontinued levETIRAcetam [Keppra] 1,500 mg PO HS levETIRAcetam [Keppra] 1,000 mg PO DAILY Losartan-Hctz 50-12.5 mg [Hyzaar 50-12.5] 1 tab PO DAILY Discharge Medication List amLODIPine [Norvasc] 5 mg PO DAILY 01/20/22 [History] carBAMazepine [TEGretol] 400 mg PO BID 01/20/22 [History] Aspirin 81 mg PO DAILY #30 tab 01/24/22 [Rx] Atorvastatin [Lipitor] 20 mg PO HS 30 Days #30 tab 01/24/22 [Rx] levETIRAcetam [Keppra] 1,500 mg PO Q12HR 30 Days #180 tab 01/24/22 [Rx] Follow up Appointment(s)/Referral(s): Craig Quijano NPC [REFERRING] - 1-2 Days Morris Andre MD [STAFF PHYSICIAN] - 2 Weeks Prashant Blancas MD [STAFF PHYSICIAN] - 1 Week Discharge Disposition: HOME SELF-CARE
[2022-01-24 16:49] VITALS: BP 119/73; PULSE 62; RESP 18
--- NOTE | 2022-01-25 12:31 | P.PN ---
Subjective Progress Note Date: 01/24/22 01/24/2022: Patient feels fine, offers no complaints. Patient tells me that when he was 8 years old, he was accidentally hit on the head by a horseshoe, when his brother was tossing the horseshoe, and it hit his head. He states that he had internal bleeding and required some surgery. He still has a dent on the head with he had the surgery. The seizures started 25-30 years ago. 01/23/2022: Patient was seen for a follow-up. Patient initially seen by Dr. Mahesh Weller. Please refer to his note for details. In summary, patient is a 67-year-old male with history of epilepsy since mid 80s, who came because of seizure. Patient currently takes Tegretol 400 mg twice a day, Keppra 1000 mg in the morning and [address] Weller has increased the dose of Keppra to 1500 mg twice a day. Patient is to follow up with Dr. Rasheed, who has retired. He needs to establish with a new neurologist. Patient denies any history of strokes or TIA. Patient tells me that he has been taking aspirin 81 mg for long time, almost 10 years. He does not miss the doses of his seizure medication. He has never smoked. Objective - Vital Signs Vital signs: Vital Signs Temp 98.5 F 01/24/22 08:00 Pulse 51 L 01/24/22 08:00 Resp 16 01/24/22 08:00 BP 125/73 01/24/22 08:00 Pulse Ox 98 01/24/22 08:00 FiO2 Intake & Output 01/23/22 01/24/22 01/24/22 18:59 06:59 18:59 Intake Total 590 Balance 590 Intake: Oral 590 Other: Voiding Method Toilet # Voids 1 3 1 - Exam Patient's mental status, speech and language functions are normal. Cranial nerves are normal. Patient has slight flattening of the left nasolabial fold, which appears his feature. Muscle strength is normal in arms and legs. No ataxia. - Labs CBC & Chem 7: 01/22/22 05:40 01/22/22 05:40 Labs: Abnormal Lab Results - Last 24 Hours (Table) 01/24/22 Range/Units 05:45 HDL Cholesterol 34.90 L (40.00-60.00) mg/dL Assessment and Plan Assessment: * Encephalopathy of unknown etiology but suspected break-through seizure. Has mild left facial droop. * History of epilepsy since 80s * History of Left frontal encephalomalacia s/p cuate hole at age 8 Plan: * MRI of the brain with and without contrast revealed old area of encephalomalacia involving the left frontal lobe. No mass lesion, no acute s troke. Patient denies any clinical history of CVA. * Carotid Doppler showed no stenosis. Antegrade flow in the vertebral arteries. * Continue aspirin [address] Weller started patient on Lipitor 20 mg daily. Lipid panel with cholesterol 112, LDL 62, HDL 34 and triglycerides 75. No need to take statins. (Although discharge summary mentions about Lipitor, but patient was told not to take it). * EEG was normal. No epileptiform activity seen. * Increased his home Keppra from 2tab qam to 3 tabs and continue same 3 tabs qhs during this hospital visit. Continue his home dose of Tegretol 400mg bid. Tegretol level is therapeutic 7.9(4-12). Keppra level is borderline 18.9(3- 60) * Neurologically clear for discharge in morning. * Recommend patient to follow up with a new neurologist, as his neurologist Dr. Rasheed has retired.
== END 2022-01-24 17:03 | disposition home or self-care (01) | DRG 101 ==
LOC: EC 12:10 → 6NMEDSUR 14:55 → OBSVTOIN 16:36 → 4SSUR 17:35
PROVIDERS: ADMIT Internal Medicine; ATTEND Internal Medicine
PROC: 4A10X4Z Monitoring of Central Nervous Electrical Activity, External Approach (ICD-10-PCS; principal; 2022-01-23)
DX: G40.909 Epilepsy, unspecified, not intractable, without status epilepticus (principal); N17.9 Acute kidney failure, unspecified; E87.1 Hypo-osmolality and hyponatremia; G93.40 Encephalopathy, unspecified; G93.0 Cerebral cysts; E86.0 Dehydration; W19.XXXA Unspecified fall, initial encounter; Y92.019 Unspecified place in single-family (private) house as the place of occurrence of the external cause; E87.6 Hypokalemia; R29.810 Facial weakness; G93.89 Other specified disorders of brain; I10 Essential (primary) hypertension; Z79.899 Other long term (current) drug therapy; Y92.009 Unspecified place in unspecified non-institutional (private) residence as the place of occurrence of the external cause
CPT/HCPCS: 36415; 70450; 70470; 70551; 70552; 71046; 80048; 80053; 80061; 80156; 80177; 80306; 81001; 83735; 84100; 84484; 85025; 85027; 93005; 93880; 95816; 96361; 96374; 96375; 99285

== ENCOUNTER → 2022-03-29 | Outpatient (CLI) | payer MEDICARE | END | disposition home or self-care (01) | LOC: LABWHC1 10:17 | PROVIDERS: ATTEND Urology | DX: R97.20 Elevated prostate specific antigen [PSA] (principal) | CPT/HCPCS: 36415; 84153 ==